=== PATIENT | female | born 1970 | race Caucasian/White ===

== ENCOUNTER 2016-06-01 21:59 | Emergency (ER) | payer OTHER ==
[~2016-06-01] VITALS: Ht 170.2 cm; Wt 77.1 kg
[~2016-06-01 21:59] MED LIST: DILAUDID2 M1 PO; IBUPROFEN800 M1 PO; PREDNISONE20 M1 PO; TRAMADOL HCL50 M1 PO
--- NOTE | 2016-06-01 22:13 | ED HEAD/FACIAL INJ COMPLAINT ---
History of Present Illness General Chief Complaint: Laceration Procedure Stated Complaint: LAC TO L BROW S/P FALL AROUND 1900 Source: patient, family Exam Limitations: no limitations Vital Signs & Intake/Output Vital Signs & Intake/Output Vital Signs Date Time Temp Pulse Resp B/P Pulse O2 O2 Flow FiO2 Ox Delivery Rate 06/01 2349 98.6 88 18 130/80 98 Room Air 06/01 2245 98 Room Air 06/01 2205 97.8 112 16 128/84 98 Room Air Room Air Allergies Coded Allergies: meperidine (Severe, Pass Out 06/01/16) morphine (Mild, Rash 06/01/16) codeine (UNKNOWN 06/01/16) Uncoded Allergies: POLLEN (10/16/11) Reconcile Medications Hydromorphone HCl (Dilaudid) 2 MG TABLET 1-2 TAB PO Q4P PRN SEVERE PAIN Ibuprofen 800 MG TABLET 1 TAB PO Q6PRN PRN pain Prednisone 20 MG TABLET 1 TAB PO BID arthralgia Triage Note: PT TO TRIAGE WITH LEFT TO LEFT EYE BROW AFTER HAVING A SYNCOPAL EPISODE IN THE KITCHEN. PT STATES SHE FELT OVER HEATED AND THEN FELT LIGHTHEADED. PT CALLED OUT FOR FAMILY WHEN SHE FELT LIKE SHE WAS GOING TO PASS OUT AND THEN FELL. FAMILY DID NOT WITNESS THE FALL BUT STATES SHE WAS UNCONSCIOUS FOR ABOUT 10 SECS. PT DENIES NECK PAIN, LAC IS APPOX 1.5 CM AND BLEEDING IN CONTROLED Triage Nurses Notes Reviewed? yes Onset: Abrupt Severity: moderate Location: left eyebrow Method of Injury: fall Loss of Consciousness: brief (seconds) Associated Symptoms: "I felt dizzy and warm." HPI: 46 yo woman presents with a left eyebrow laceration after a syncopal episode. She notes, "I had just eaten... I bent over the horologist... It was so hot - the hot steam and all - and then I felt hot and dizzy and felt a garcia... I got dizzy and passed out and I guess I hit my head on the corner." She notes a brief loss of consciousness. She notes mild pain at the left side of her forehead and a laceration in her left eyebrow. She notes no other injury. She is otherwise well. Past History Travel History Traveled to [place] past 21 day No Medical History Any Pertinent Medical History? 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 No Review of Systems Review of Systems Constitutional: Reports: no symptoms. EENTM: Reports: no symptoms. Respiratory: Reports: no symptoms. Cardiovascular: Reports: no symptoms. GI: Reports: no symptoms. Genitourinary: Reports: no symptoms. Musculoskeletal: Reports: no symptoms. Skin: Reports: no symptoms. Neurological/Psychological: Reports: no symptoms. Hematologic/Endocrine: Reports: no symptoms. Immunologic/Allergic: Reports: no symptoms. All Other Systems: Reviewed and Negative Physical Exam Physical Exam General Appearance: well developed/nourished, mild distress Head: 3CM LACERATION IN RIGHT ANGLE AT LEFT median EYEBROW... left lateral eyebrow with focal tenderness. Eyes: Bilateral: PERRL, EOMI. Ears, Nose, Throat: normal pharynx, normal ENT inspection, hearing grossly normal Neck: normal inspection, supple Respiratory: normal breath sounds Cardiovascular: regular rate/rhythm Gastrointestinal: soft, non-tender Back: normal inspection Extremities: normal inspection, normal range of motion, no edema Psychiatric: awake, alert, oriented x 3 Cranial Nerves: normal hearing, normal speech, PERRL Coordination/Gait: normal finger to nose, normal gait Motor/Sensory: no motor/sensory deficits Reflexes: 1+: bicep (R), bicep (L). Skin: intact, normal color, warm/dry Lymphatic: no anterior cervical zachariah Progress Differential Diagnosis: globe injury, ICH, orbit fracture Plan of Care: Orders Procedure Date/time Status TROPONIN LEVEL 06/01 2221 Complete COMPREHENSIVE METABOLIC PANEL 06/01 2221 Complete CBC WITHOUT DIFFERENTIAL 06/01 2221 Complete Laboratory Tests 06/01/16 2230: Anion Gap 15, Estimated GFR > 60, BUN/Creatinine Ratio 16.7, Glucose 97, Calcium 9.7, Total Bilirubin 0.3, AST 21, ALT 38, Alkaline Phosphatase 56, Troponin I < 0.01, Total Protein 6.8, Albumin 4.2, Globulin 2.6, Albumin/Globulin Ratio 1.6, CBC w Diff MAN DIFF ORDERED, RBC 4.69, MCV 89.4, MCH 30.2, RDW 12.7, MPV 8.2, Segmented Neutrophils 75, Lymphocytes 14 L, Monocytes 6, Eosinophils 5, Platelet Estimate VERIFIED BY SMEAR, Normocytic RBCs VERIFIED, Normochromic RBCs VERIFIED, PUBS MCHC 33.8, Fld Total RBCs Counted 100 Diagnostic Imaging: Viewed by Me: CT Scan. Discussed w/RAD: CT Scan. Radiology Impression: HEAD/MAXILLO-FACIAL... NO FX. NO ACUTE DISEASE... FULL REPORT BELOW Initial ED EKG: normal axis, normal intervals, normal p-waves, normal QRS complex, normal sinus rhythm Comments: PATIENT: MEGAN VILLANUEVA PRESENT AGE: 46 PATIENT ACCOUNT NO: [id number] : 70 LOCATION: [facility] ORDERING PHYSICIAN: EDMOND BROWN MD SERVICE DATE: 06/01/16 EXAM TYPE: CAT - CT HEAD WO IV CONTRAST; CT MAXILLOFACIAL W/O CON EXAMINATION: NONCONTRAST HEAD CT NONCONTRAST MAXILLOFACIAL CT INDICATION INFORMATION: Head injury with loss of consciousness. COMPARISON: None TECHNIQUE: Separate noncontrast CT examinations of the head and maxillofacial bones were performed. Coronal and sagittal images were created for each examination at the technologist workstation. FINDINGS: Head: No evidence of acute intracranial hemorrhage. No extra-axial fluid collections are seen. Leon-white differentiation is maintained without evidence of acute territorial infarction. Ventricles are of normal size without evidence of hydrocephalus. No mass effect or midline shift. The mastoid air cells are well aerated. No acute calvarial fractures are seen. Maxillofacial: There is left periorbital soft tissue swelling. No acute maxillofacial fractures are seen. The pterygoid plates are intact. The lamina papyracea are intact. Zygomatic arches are intact. The orbital rims are intact. Minimal mucoperiosteal thickening of the maxillary sinuses. The frontal, maxillary, ethmoid, and sphenoid sinuses are otherwise well aerated. The uncinate process is normal bilaterally. The infundibula and middle meati are patent. The nasal septum is midline. The mandibular heads are well-seated in the condylar fossa. The orbits demonstrate a normal appearance bilaterally. The globes are intact, and there are no suspicious findings to suggest retrobulbar hemorrhage. IMPRESSION: 1. No acute intracranial findings. 2. Left periorbital soft tissue swelling. No underlying fracture. DICTATED BY: ALEXANDRA COMER MD DATE/TIME DICTATED:06/01/162329 DIGITAL CARTOGRAPHER:SIGIFREDO DATE/TIME TRANSCRIBED:06/01/162329 CONFIDENTIAL, DO NOT COPY WITHOUT APPROPRIATE AUTHORIZATION. <Electronically signed in Other Vendor System> SIGNED BY: SOULEYMANE CASSIDY,ALEXANDRA 06/01 Departure Departure Disposition: HOME OR SELF CARE Condition: Stable Clinical Impression Primary Impression: Head injury Secondary Impressions: Forehead laceration, Vasovagal syncope Referrals: JERRICA MITTAL APRN (PCP/Family) Departure Forms: Customer Survey General Discharge Information Comments 06/01/16, 23:50... pt feels well, able to ambulate, with benign labs/ekg/ct scan. Procedures Laceration/Wound Repair Laceration/Wound Repair: Wound Location: face Wound's Depth, Shape: linear Wound Length (cm): 3 Wound Explored: clean, no foreign body removed Irrigated w/ Saline (ccs): 100 Betadine Prep? Yes Anesthesia: 1% lidocaine Volume Anesthetic (ccs): 7 Suture Size/Type: 4:0, nylon Progress: #4 sutures... excellent result.
[2016-06-01 22:40] LABS: MEAN CORPUSCULAR HGB 30.2 PG (27.0-31.0); MEAN CORPUSCULAR HGB CONC 33.8 G/DL (33.0-37.0); MEAN CORPUSCULAR VOLUME 89.4 FL (81.0-99.0); MEAN PLATELET VOLUME 8.2 FL (7.4-10.4); PLATELET COUNT 193 /CUMM (130-400); RBC DISTRIBUTION WIDTH 12.7 % (11.5-14.5); RED BLOOD CELL CT 4.69 /CUMM (4.20-5.40)
--- NOTE | 2016-06-01 23:38 | CT SCAN REPORT ---
EXAMINATION: NONCONTRAST HEAD CT NONCONTRAST MAXILLOFACIAL CT INDICATION INFORMATION: Head injury with loss of consciousness. COMPARISON: None TECHNIQUE: Separate noncontrast CT examinations of the head and maxillofacial bones were performed. Coronal and sagittal images were created for each examination at the technologist workstation. FINDINGS: Head: No evidence of acute intracranial hemorrhage. No extra-axial fluid collections are seen. Leon-white differentiation is maintained without evidence of acute territorial infarction. Ventricles are of normal size without evidence of hydrocephalus. No mass effect or midline shift. The mastoid air cells are well aerated. No acute calvarial fractures are seen. Maxillofacial: There is left periorbital soft tissue swelling. No acute maxillofacial fractures are seen. The pterygoid plates are intact. The lamina papyracea are intact. Zygomatic arches are intact. The orbital rims are intact. Minimal mucoperiosteal thickening of the maxillary sinuses. The frontal, maxillary, ethmoid, and sphenoid sinuses are otherwise well aerated. The uncinate process is normal bilaterally. The infundibula and middle meati are patent. The nasal septum is midline. The mandibular heads are well-seated in the condylar fossa. The orbits demonstrate a normal appearance bilaterally. The globes are intact, and there are no suspicious findings to suggest retrobulbar hemorrhage. IMPRESSION: 1. No acute intracranial findings. 2. Left periorbital soft tissue swelling. No underlying fracture.
[2016-06-01 23:49] VITALS: BP 130/80
== END 2016-06-01 23:49 ==
LOC: ERH 21:59
PROVIDERS: Pediatrics
DX: R55 Syncope and collapse (principal); S01.81XA Laceration without foreign body of other part of head, initial encounter; S09.90XA Unspecified injury of head, initial encounter; W19.XXXA Unspecified fall, initial encounter

== ENCOUNTER 2016-09-19 15:22 | Emergency (ER) | payer OTHER ==
[~2016-09-19] VITALS: Ht 170.2 cm; Wt 81.6 kg
--- NOTE | 2016-09-19 16:23 | ED THROAT/DENTAL COMPLAINT ---
History of Present Illness General Chief Complaint: General Adult Stated Complaint: PT IS HAVING THROAT PROBLEMS Source: patient Exam Limitations: no limitations Vital Signs & Intake/Output Vital Signs & Intake/Output Vital Signs Date Time Temp Pulse Resp B/P B/P Pulse O2 O2 Flow FiO2 Mean Ox Delivery Rate 09/20 2027 97.5 74 18 134/78 97 Room Air Room Air 09/19 1924 97.2 72 18 130/82 100 Room Air 09/19 1731 97.6 89 19 138/88 99 Room Air 09/19 1533 97.9 99 22 142/100 98 Allergies Coded Allergies: meperidine (Severe, Pass Out, VOMIT 09/19/16) morphine (Mild, PASS OUT 09/19/16) codeine (PROJECTILE VOMITING CONSISTENT 09/19/16) Uncoded Allergies: POLLEN (10/16/11) Reconcile Medications Aspirin/Acetaminophen/Caffeine (Excedrin Extra Strength Caplet) 250 MG-250 MG-65 MG TABLET 2 TAB PO PRN HEADACHE (Reported) Bupropion HCl (Bupropion XL) 300 MG TAB.ER.24H 1 TAB PO DAILY SMOKING CESSATION (Reported) Cetirizine HCl (Zyrtec) 10 MG TABLET 1 TAB PO DAILY ALLERGIES (Reported) Tramadol HCl (Ultram) 50 MG TABLET 1-2 TAB PO Q6P PRN PAIN Triage Note: PER PT BEEN BEING TREATED ALL WINTER FOR SINUS PROBLEMS, SORE THROAT, PT REPORTS FINISHED ANTIBIOTICS 1 MONTH AGO, BUT PAIN AND SORE THORAT CONTINUES, MOUTH DRY CONSTANT DRAINAGE FROM MUCOUS. PT HAS BEEN ON STEROIDS. PT ALSO FEELS RASPY. Triage Nurses Notes Reviewed? yes HPI: Patient presents for evaluation of a severe sore throat that has been present for months but it got considerably worse since Friday. Patient states he is having severe pain and difficulty swallowing. There is been no associated fever the patient states that she has been treated repeatedly with antibiotics and steroids for her throat and sinus problems. She denies any associated fever. Continue nose and throat appointment pending via her primary care doctor. (MARIA G CASSIDY,EUFEMIA Melvin) Past History Travel History Traveled to [place] past 21 day No Medical History Any Pertinent Medical History? 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 No (MARIA G CASSIDY,EUFEMIA Melvin) Review of Systems Review of Systems Constitutional: Reports: no symptoms. EENTM: Reports: see HPI. Respiratory: Reports: no symptoms. Cardiovascular: Reports: no symptoms. GI: Reports: no symptoms. Genitourinary: Reports: no symptoms. Musculoskeletal: Reports: no symptoms. Skin: Reports: no symptoms. Neurological/Psychological: Reports: no symptoms. Hematologic/Endocrine: Reports: no symptoms. Immunologic/Allergic: Reports: no symptoms. All Other Systems: Reviewed and Negative (MARIA G CASSIDY,EUFEMIA Melvin) Physical Exam Physical Exam Mouth/Throat: SEE BELOW Comments: Gen.: Well-nourished, well-developed, no acute respiratory distress. Hoarse voice. Head: Normocephalic, atraumatic. Eyes: Normal inspection bilaterally Ears: Normal inspection bilaterally Nose: Normal inspection Throat/mouth : Moist mucosa, pharyngeal erythema or soft tissue swelling, no exudates Neck: Supple, full range of motion, no goiter, mild anterior cervical lymphadenopathy, no stridor Heart: Regular rate and rhythm, no murmurs rubs or gallops Lungs: Clear to auscultation bilaterally with normal air entry Chest: Nontender Back: Normal range of motion Abdomen: Soft, nontender, nondistended, normal bowel sounds Extremities: Normal range of motion grossly, equal radial pulses, no cyanosis clubbing or edema Neurologic: Cranial nerves grossly intact, speech is clear Skin: warm and dry Psychiatric: Calm, cooperative, no apparent delusions or hallucinations Core Measures ACS in differential dx? No Severe Sepsis Present: No Septic Shock Present: No (MARIA G CASSIDY,EUFEMIA Melvin) Progress Differential Diagnosis: epiglottitis, Ludwigs angina, odontogenic abscess, awais- tonsillar abscess, strep pharyngitis, mono Plan of Care: Orders Procedure Date/time Status Add-on Test (ER Only) 09/19 1956 Active HUMAN BETA HCG SCREEN 09/19 170 Complete CBC WITHOUT DIFFERENTIAL 09/20 1703 Complete THROAT CULTURE W/QUICK STREP 09/19 1655 Active COMPREHENSIVE METABOLIC PANEL 09/19 1630 Complete MONOSPOT 09/19 1622 Complete Laboratory Tests 09/19/16 1704: Anion Gap 10, Estimated GFR > 60, BUN/Creatinine Ratio 20.0, Glucose 92, Calcium 9.5, Total Bilirubin 0.4, AST 19, ALT 38, Alkaline Phosphatase 61, Total Protein 6.7, Albumin 4.1, Globulin 2.6, Albumin/Globulin Ratio 1.6, Total Beta HCG NEGATIVE, CBC w Diff MAN DIFF ORDERED, RBC 4.70, MCV 90.8, MCH 30.4, RDW 13.1, MPV 9.2, Gran % 79.6 H, Lymphocytes % 14.6 L, Monocytes % 4.0, Eosinophils % 1.5, Basophils % 0.3, Absolute Granulocytes 14.4 H, Absolute Lymphocytes 2.6, Absolute Monocytes 0.7 H, Absolute Eosinophils 0.3, Absolute Basophils 0.1, Platelet Estimate ADEQUATE, Normocytic RBCs VERIFIED, Normochromic RBCs VERIFIED , PUBS MCHC 33.4, Infectious Sweet Grass Titer NEGATIVE 09/19/16 1628: Total Beta HCG Cancelled Comments: 09/19/2016 6:20:48 PM I have updated Grace on test results to this point. 19:53 PT UPDATED. PLAN PAIN CONTROL AND F/U WITH ENT SCHEDULED. (MARIA G CASSIDY,EUFEMIA Melvin) Departure Departure Disposition: HOME OR SELF CARE Condition: Stable Clinical Impression Primary Impression: Sore throat Referrals: JERRICA MITTAL APRN (PCP/Family) Additional Instructions: CONSIDER SWITCHING TO ALEGRA. IBUPROFEN 600MG EVERY 6 HOURS NEEDED FOR PAIN. ADD TRAMADOL IF NEEDED FOR PAIN. NOTIFY YOUR PRIMARY CARE DOCTOR OF THIS ED VISIT AND TREATMENT PLAN. YOUR DOCTOR SHOULD REVIEW THE TESTS DONE IN THE ED AND FOLLOW ANY UNRELATED FINDINGS IF NEEDED. RETURN IF ANY CONCERNS OR SUDDEN WORSENING. Departure Forms: Customer Survey General Discharge Information RELEASE- WORK Prescriptions: Current Visit Scripts Tramadol HCl (Ultram) 1-2 TAB PO Q6P PRN PAIN #20 TAB (MARIA G CASSIDY,EUFEMIA Melvin) PA/TELLER SUPERVISOR Co-Sign Statement Statement: ED Attending supervision documentation- [] I saw and evaluated the patient. I have also reviewed all the pertinent lab results and diagnostic results. I agree with the findings and the plan of care as documented in the PA's/TELLER SUPERVISOR's documentation. x I have reviewed the ED Record and agree with the PA's/TELLER SUPERVISOR's documentation. [] Additions or exceptions (if any) to the PAs/TELLER SUPERVISOR's note and plan are summarized below: [] (LIMA CASSIDY,ALYSON)
[2016-09-19] MEDS ORDERED: BUPROPION XL300 M1 PO (16:54)
[2016-09-19] MEDS ORDERED: EXCEDRIN EXTRA1 EACH PO (16:55)
[2016-09-19] MEDS ORDERED: ZYRTEC10 M3 PO (16:55)
--- NOTE | 2016-09-19 19:27 | CT SCAN REPORT ---
EXAMINATION: CT SOFT TISSUE NECK WITH CONTRAST CLINICAL INFORMATION: Severe sore throat and hoarse voice. Assess for epiglottitis, retropharyngeal abscess. COMPARISON: None. TECHNIQUE: Following the intravenous administration of 95 mL of Optiray 320, helical imaging was performed in the axial plane with generation of coronal and sagittal reformatted images. DLP: 553.45 mGy-cm FINDINGS: There is no cervical lymphadenopathy. The epiglottis is not thickened. There are no masses or fluid collections in the floor of mouth or at the base of tongue. There is no cervical lymphadenopathy. There are small multilevel lymph nodes in the neck bilaterally. The parotid glands are homogeneous in attenuation. The submandibular glands are normal. No contour abnormality or pathologic enhancement is seen within the oral cavity or pharyngeal mucosal space. The laryngeal structures are normal. The parapharyngeal fat is preserved. The carotid sheath vasculature opacify normally. No extramucosal soft tissue mass or fluid collection is seen. No retropharyngeal fluid collection is seen. The thyroid gland is mildly prominent but has relatively homogenous density. The superior mediastinum is unremarkable. There are subpleural blebs at the right greater than left lung apices. The mastoid air cells are well aerated. There is mild mucoperiosteal thickening in the inferior left maxillary sinus. The temporomandibular joints are normal. No periapical disease is identified. There are sequelae of an ACDF at the levels of C5-C7. The imaged portions of the brain parenchyma are unremarkable. IMPRESSION: 1. There is no cervical lymphadenopathy. 2. The epiglottis is not thickened and there are no masses or fluid collections in the floor of mouth or at the base of the tongue. 3. There are sequelae of an ACDF between C5 and C7.
[2016-09-19] MEDS ORDERED: ULTRAM50 M1 PO (19:56)
[2016-09-19 20:06] LABS: ABSOLUTE BASOPHIL COUNT 0.1 /CUMM (0.0-0.2); ABSOLUTE EOSINOPHIL COUNT 0.3 /CUMM (0.0-0.7); ABSOLUTE GRANULOCYTE CT 14.4 /CUMM (1.4-6.5); ABSOLUTE LYMPH COUNT 2.6 /CUMM (1.2-3.4); ABSOLUTE MONOCYTE COUNT 0.7 /CUMM (0.10-0.60); BASOPHIL % 0.3 % (0.0-2.0); EOSINOPHIL % 1.5 % (0-5); GRANULOCYTE % 79.6 % (42.2-75.2); HEMATOCRIT 42.7 % (37-47); MEAN CORPUSCULAR HGB 30.4 PG (27.0-31.0); MEAN CORPUSCULAR HGB CONC 33.4 G/DL (33.0-37.0); MEAN CORPUSCULAR VOLUME 90.8 FL (81.0-99.0); MEAN PLATELET VOLUME 9.2 FL (7.4-10.4); PLATELET COUNT 219 /CUMM (130-400); RBC DISTRIBUTION WIDTH 13.1 % (11.5-14.5)
[2016-09-19 20:28] VITALS: BP 134/78
== END 2016-09-19 20:30 ==
LOC: ERH 15:22
PROVIDERS: Emergency Medicine
DX: J02.9 Acute pharyngitis, unspecified (principal); Z72.0 Tobacco use

== ENCOUNTER 2017-07-16 17:19 | Emergency (ER) | payer OTHER ==
[~2017-07-16 17:19] MED LIST changes: +BUPROPION XL300 M1 PO; +DULOXETINE HCL30 MG PO; +EXCEDRIN EXTRA1 EACH PO; +OXYBUTYNIN CHLO10 M1 PO; +OXYCODONE HCL5 M1 PO; +PERCOCET 5-3251 EACH PO; +ULTRAM50 M1 PO; +ZYRTEC10 M3 PO
[2017-07-16 18:12] LABS: ABSOLUTE BASOPHIL COUNT 0.4 /CUMM (0.0-0.2); ABSOLUTE EOSINOPHIL COUNT 0.3 /CUMM (0.0-0.7); ABSOLUTE GRANULOCYTE CT 5.4 /CUMM (1.4-6.5); ABSOLUTE LYMPH COUNT 2.9 /CUMM (1.2-3.4); ABSOLUTE MONOCYTE COUNT 0.5 /CUMM (0.10-0.60); BASOPHIL % 4.1 % (0.0-2.0); EOSINOPHIL % 3.3 % (0-5); GRANULOCYTE % 56.6 % (42.2-75.2); HEMATOCRIT 41.4 % (37-47); MEAN CORPUSCULAR HGB 29.5 PG (27.0-31.0); MEAN CORPUSCULAR VOLUME 89.4 FL (81.0-99.0); MEAN PLATELET VOLUME 8.1 FL (7.4-10.4); PLATELET COUNT 256 /CUMM (130-400); RBC DISTRIBUTION WIDTH 12.7 % (11.5-14.5); RED BLOOD CELL CT 4.63 /CUMM (4.20-5.40); WHITE BLOOD CELL COUNT 9.6 /CUMM (4.8-10.8)
[2017-07-16 18:37] LABS: PT 9.4 SEC (9.4-12.5); PTT 30 SEC (25-37)
--- NOTE | 2017-07-16 20:22 | CT SCAN REPORT ---
EXAMINATION: CT ANGIOGRAM ABDOMEN AND PELVIS CLINICAL INFORMATION: Diffuse abdominal pain and rectal bleeding. COMPARISON: None TECHNIQUE: Multiple axial images were obtained through the abdomen and pelvis following the administration of 100 mL of Optiray 320 intravenous contrast. Images were reviewed on a dedicated 3-D workstation. DLP: 927.75 mGy-cm FINDINGS: Both lung bases are clear. The heart size is normal. Visualized liver, spleen, pancreas and right adrenal gland appears unremarkable. There is a left adrenal and 0.7 x 1.8 cm lesion measuring 35 Hounsfield units on postcontrast exam and 4 Hounsfield units on precontrast exam. The gallbladder has been surgically removed. The abdominal aorta and its bifurcation are normal caliber. No retroperitoneal lymph nodes or mass seen. The IVC is normal. Both kidneys are normal size, shape and position. There is no radiopaque calculi, enhancing renal mass, cyst or hydronephrosis. Both ureters are opacified in segments and appear unremarkable. Imaging through the pelvis reveals a midline anteverted uterus to be unremarkable. The urinary bladder is opacified partially from excreted contrast and appears unremarkable. There is no free fluid seen in the cul-de-sac. Posterior L4-L5 fusion with metallic hardware is noted in place. No bony lytic or sclerotic process seen. IMPRESSION: No acute process seen on CT abdomen pelvis exam.
--- NOTE | 2017-07-16 20:25 | ED GI/GU/ABDOMINAL COMPLAINT ---
History of Present Illness General Chief Complaint: General Adult Stated Complaint: RECTAL BLEEDING Source: patient, old records Exam Limitations: no limitations Vital Signs & Intake/Output Vital Signs & Intake/Output Vital Signs Date Time Temp Pulse Resp B/P B/P Pulse O2 O2 Flow FiO2 Mean Ox Delivery Rate 07/16 2105 97.6 78 18 154/78 98 Room Air 07/16 1745 98.2 94 18 133/92 98 Room Air Allergies Coded Allergies: meperidine (Severe, Pass Out, VOMIT 09/19/16) morphine (Mild, PASS OUT 09/19/16) codeine (PROJECTILE VOMITING CONSISTENT 09/19/16) Uncoded Allergies: POLLEN (10/16/11) Reconcile Medications Cetirizine HCl (Zyrtec) 10 MG TABLET 1 TAB PO DAILY ALLERGIES (Reported) Duloxetine HCl (Unknown Strength) CAPSULE.DR (Unknown Dose) PO DAILY DEPRESSION (Reported) Hydromorphone HCl (Dilaudid) 2 MG TABLET 1 TAB PO BIDP PRN PAIN Ibuprofen 800 MG TABLET 1 TAB PO TID PAIN Oxybutynin Chloride (Oxybutynin Chloride ER) 10 MG TAB.ER.24 1 TAB PO DAILY BLADDER (Reported) Oxycodone HCl 5 MG TABLET 1 TAB PO BIDP PRN BREAKTHROUGH PAIN Triage Note: 47 YO FEMALE TO TRAIGE C/O RECTAL BLEEDING SINCE FRIDAY. STATES BRB ON TOILET PAPER AND IN TOILET. C/O PIAN TO LOWER ABD AND WEAKNESS. Triage Nurses Notes Reviewed? yes ? N Is pt currently ? No Onset: Abrupt Duration: day(s): (3), constant, waxing and waning Timing: recent history Quality/Severity: aching Severity Numbers: 4 Location: left lower quadrant, left upper quadrant Radiation: no radiation Activities at Onset: none No Modifying Factors: none Associated Symptoms: DENIES HPI: 47-year-old female presents to the ER for evaluation with 3 day history of rectal bleeding. She also reports left-sided abdominal pain. No nausea vomiting recent constipation. Patient has a history of external hemorrhoids many years ago denies rectal pain. 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 Damon who she is scheduled to see him Friday. No shortness of breath dizziness lightheadedness chest pain. Her last colonoscopy was 5 years ago at which time she states she had polyps removed. No recent weight loss. No urinary complaints she states yesterday she was going through 3-4 pads however today she did not need to use any. (George Arrieta) Past History Travel History Traveled to [place] past 21 day No Medical History Any Pertinent Medical History? see below for history Neurological: HX OF MIGRAINE EENT: sinusitis Cardiovascular: MURMUR Respiratory: bronchitis Gastrointestinal: NONE Hepatic: NONE Renal: NONE Musculoskeletal: chronic back pain Psychiatric: NONE Endocrine: NONE Blood Disorders: NONE Cancer(s): NONE URGENT CARE/Reproductive: NONE Surgical History Surgical History: cholecystectomy, , LEFT WRIST SURGERY, UTERINE ABLATION MULTIPLE TMJ SURGERIES Psychosocial History What is your primary language Telugu Tobacco Use: Current Daily Use Daily Tobacco Use Amount/Type: => 5 Cigarettes daily Family History Hx Contributory? No (George Arrieta) Review of Systems Review of Systems Constitutional: Reports: see HPI. Comments Review of systems: See HPI, All other systems negative. Constitutional, no chills no fever, HEENT: no sore throat no congestion Cardiovascular: No chest pain Skin: no rashes, no change in skin Respiratory: No dyspnea no cough no sputum GI: No nausea no vomiting, no diarrhea, : No dysuria No hematuria, no frequency Muscle skeletal: No joint pain, no back pain, no neck pain, Neurologic: , no headache Heme/endocrine: No bruising (George Arrieta) Physical Exam Physical Exam General Appearance: well developed/nourished, alert, awake Gastrointestinal: normal bowel sounds, soft, non-tender Comments: Well-developed well-nourished patient in no apparent distress. HEENT: Atraumatic, extraocular motion intact Neck: Supple, FROM Back: FROM Cardiovascular: Regular rate and rhythms no murmurs rubs or gallops, Respiratory: No respiratory distress. Patient speaking in full complete sentences. Breath sounds clear to auscultation bilaterally: NO W/R/R Abdomen: Soft nontender no rebound or guarding Rectal deferred Extremities: full range of motion Neuro: awake, alert, and oriented to person, place and time. There were no obvious focal neurologic abnormalities. Skin: Warm & dry;No appreciable rash on exposed skin Psych: Mood affect normal, normal memory normal judgment. Core Measures ACS in differential dx? No Sepsis Present: No Sepsis Focused Exam Completed? No (George Arrieta) Progress Differential Diagnosis: appendicitis, biliary colic, bowel obstruction, colon cancer, diverticulitis, gastritis, hepatitis, inflamm bowel dis, kidney stone, peptic ulcer, PUD/GERD, perforated viscous Plan of Care: Orders Procedure Date/time Status Add-on Test (ER Only) 07/16 1832 Active LACTIC ACID 07/16 174 Complete MISTAKE 07/16 173 Active TROPONIN LEVEL 07/16 1736 Complete PARTIAL THROMBOPLASTIN TIME 07/16 1736 Complete PROTHROMBIN TIME 07/16 1736 Complete COMPREHENSIVE METABOLIC PANEL 07/16 1736 Complete CBC WITHOUT DIFFERENTIAL 07/16 1736 Complete TYPE & SCREEN (NOT X-MATCH) 07/16 1736 Complete EKG 07/16 173 Active Laboratory Tests 07/16/172046: Lactic Acid Cancelled 07/16/171747: Anion Gap 13, Estimated GFR > 60, BUN/Creatinine Ratio 16.7, Glucose 91, Lactic Acid 1.5, Calcium 9.6, Total Bilirubin 0.3, AST 22, ALT 32, Alkaline Phosphatase 53, Troponin I < 0.01, Total Protein 6.8, Albumin 4.3, Globulin 2.5, Albumin/ Globulin Ratio 1.7, PT 9.4, INR 0.89 L, APTT 30, CBC w Diff NO MAN DIFF REQ, RBC 4.63, MCV 89.4, MCH 29.5, MCHC 33.0, RDW 12.7, MPV 8.1, Gran % 56.6, Lymphocytes % 30.2, Monocytes % 5.8, Eosinophils % 3.3, Basophils % 4.1 H, Absolute Granulocytes 5.4, Absolute Lymphocytes 2.9, Absolute Monocytes 0.5, Absolute Eosinophils 0.3, Absolute Basophils 0.4 07/16/171746: Lactic Acid Cancelled Labs were ordered from triage CAT scan ordered I discussed with the patient at length all of her results and she feels well enough to go home- H&H is within normal limits she is hemodynamically stable resting in no apparent distress I advise close follow-up with GI who she is scheduled to see on Friday return precautions were discussed at length she feels comfortable plan Diagnostic Imaging: Viewed by Me: CT Scan. Discussed w/RAD: CT Scan. Initial ED EKG: none (Rodger MCNULTY,George) Departure Departure Time of Disposition: 2052 Disposition: HOME OR SELF CARE Condition: Stable Clinical Impression Primary Impression: Rectal bleeding Referrals: Lou CASSIDY,Carmen Meneses APRN (PCP/Family) Additional Instructions: FOLLOW UP WITH YOUR RATE CLERK PASSENGER DR CHERRY ON FRIDAY SCHEDULED.. DILAUDID FOR PAIN. REST, DRINK PLENTY OF FLUIDS. RETURN AT [facility] WITH ANY CONCERNS Departure Forms: Customer Survey General Discharge Information Prescriptions: Current Visit Scripts Hydromorphone HCl (Dilaudid) 1 TAB PO BIDP PRN PAIN #10 TAB (George Arrieta) PA/STEAM TRAIN DRIVER Co-Sign Statement Statement: ED Attending supervision documentation- I saw and evaluated the patient. I have also reviewed all the pertinent lab results and diagnostic results. I agree with the findings and the plan of care as documented in the PA's/STEAM TRAIN DRIVER's documentation. x I have reviewed the ED Record and agree with the PA's/STEAM TRAIN DRIVER's documentation. [] Additions or exceptions (if any) to the PAs/STEAM TRAIN DRIVER's note and plan are summarized below: [] (Layla CASSIDY,Elias)
[2017-07-16] MEDS ORDERED: DILAUDID2 M1 PO (20:55)
[2017-07-16 21:05] VITALS: BP 154/78
== END 2017-07-16 21:07 ==
LOC: ERH 17:19
PROVIDERS: Physician Assistant Medical
DX: K62.5 Hemorrhage of anus and rectum (principal)
CPT/HCPCS: 74174; 93005; 93010

== ENCOUNTER 2017-09-22 09:01 | Emergency (ER) | payer OTHER ==
[2017-09-22] MEDS ORDERED: BUPROPION XL300 M1 PO (10:52)
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
[2017-09-22] MEDS ORDERED: PERCOCET 5-3251 EACH PO (11:36)
[2017-09-22 11:42] VITALS: BP 138/87
== END 2017-09-22 11:43 ==
LOC: ERH 09:01
DX: T23.201A Burn of second degree of right hand, unspecified site, initial encounter (principal); X12.XXXA Contact with other hot fluids, initial encounter; Y93.9 Activity, unspecified; Y92.9 Unspecified place or not applicable

== ENCOUNTER 2018-01-05 12:26 | Emergency (ER) | payer OTHER ==
[~2018-01-05] VITALS: Ht 170.2 cm; Wt 79.4 kg
--- NOTE | 2018-01-05 15:14 | CT SCAN REPORT ---
EXAMINATION: CT HEAD WITHOUT CONTRAST CT CERVICAL SPINE WITHOUT CONTRAST CLINICAL INFORMATION: Status post fall. Assess for bleed or fracture. COMPARISON: CT scan of the cervical spine 04/07/[address] scan of the head 06/01/2016. TECHNIQUE: Multidetector CT imaging of the head and cervical spine was performed without the use of intravenous contrast. Coronal and sagittal reformatted images were generated at the technologist workstation. DLP: 893.97 mGy-cm. FINDINGS: CT head: There is no evidence of acute intracranial hemorrhage or territorial infarction. No abnormal mass-effect or midline shift is seen. Leon to white matter differentiation is well preserved. No extra-axial fluid collections are identified. The ventricles are normal in size. There is no abnormal attenuation within the brain parenchyma. There are no acute osseous soft tissue abnormalities. The mastoid air cells and visualized portions of the paranasal sinuses are well-aerated. CT cervical spine: The study redemonstrates the sequelae of the ACDF at C5-C6. The anterior plate and the vertebral body screws appear intact without evidence of fracture or loosening. The study redemonstrates the corpectomy graft. It appears to be well integrated into the superior endplate of C7, but there is incomplete osseous union into the inferior endplate of C5, unchanged. There is narrowing of intervertebral disc height at C6-C7. There are no acute fractures or subluxations. There are multilevel facet arthropathic changes. The lateral masses of C1 and C2 are normally aligned and the dens is intact. The atlantooccipital articulations appear normal. The paravertebral structures are unremarkable. There are emphysematous changes with bullae at the bilateral lung apices. IMPRESSION: 1. There are no acute bleeds or territorial infarcts. There are no acute osseous or soft tissue abnormalities. 2. There are no acute fractures or subluxations in the cervical spine. The study redemonstrates the sequelae of the ACDF at C5-C7.
--- NOTE | 2018-01-05 15:20 | RADIOLOGY REPORT ---
EXAMINATION: CR PELVIS. CR RIGHT HIP. CR CHEST X-RAY. CR LEFT WRIST. CLINICAL INFORMATION: Status post fall with hip pain. Rule out fracture. Status post fall at work. Left wrist pain. Hip pain. Pleuritic pleuritic pain. COMPARISON: Chest x-ray dated 11/15/2017. TECHNIQUE: Frontal and lateral views of the chest. Frontal view of the pelvis and coned-down frontal and frog-leg lateral views of the right hip. 4 views of the left wrist. FINDINGS: CHEST X-RAY: The cardiomediastinal silhouette is within normal limits in size. Lungs bilaterally are symmetrically expanded and clear. No focal consolidation, effusion or pneumothorax is seen. Cervical spine fusion plate is partially imaged. Bony structures are otherwise unremarkable. PELVIS AND RIGHT HIP: Lower spinal fusion hardware is partially included. The bony pelvis is intact with no acute fracture or dislocation seen. The right hip is intact with no acute fracture or dislocation seen. Sacroiliac joints, hip joints and pubic symphysis are intact. Degenerative changes seen in the acetabular roofs bilaterally with some cystic changes noted. Enthesopathic changes are seen at the anterior superior iliac spines. LEFT WRIST: Mild soft tissue swelling is seen over the ulnar styloid process. No underlying fracture or dislocation is seen. The carpal rows are well maintained in alignment. Radiocarpal joint and radioulnar joint are intact. No foreign body or significant degenerative change or soft tissue calcifications are seen. IMPRESSION: 1. No evidence of acute injury to the chest, pelvis, right hip and left wrist. 2. Postsurgical changes seen involving the cervical spine fusion and lower lumbar spine fusion.
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
--- NOTE | 2018-01-05 17:30 | RADIOLOGY REPORT ---
EXAMINATION: XR THORACOLUMBAR SPINE CLINICAL INFORMATION: Fall. COMPARISON: CT scan abdomen pelvis 07/16/2017, CT cervical spine 04/07/2017 TECHNIQUE: AP lateral view of thoracic spine. AP lateral view of lumbar spine. FINDINGS: There is no fracture. Vertebrae have normal height and normal alignment. There is orthopedic plate and screw at the lower cervical spine. Transpedicular screws present at L4-L5. Hardware is intact. There is mild degenerative lipping at the anterior vertebral endplates of thoracic and lumbar spine vertebral bodies. Surgical clips right upper quadrant of abdomen. IMPRESSION: 1. No acute abnormality. 2. 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 3. Status post orthopedic fusion of the lower cervical spine at lower lumbar spine.
[2018-01-05 17:31] VITALS: BP 139/96
[2018-01-05] MEDS ORDERED: PERCOCET 5-3251 EACH PO (17:39)
[2018-01-05] MEDS ORDERED: CYCLOBENZAPRINE10 M1 PO (17:40)
== END 2018-01-05 17:45 ==
LOC: ERH 12:26
DX: M25.552 Pain in left hip (principal); M25.532 Pain in left wrist; S70.01XA Contusion of right hip, initial encounter; W18.09XA Striking against other object with subsequent fall, initial encounter; Y93.83 Activity, rough housing and horseplay; Y92.89 Other specified places as the place of occurrence of the external cause
CPT/HCPCS: 71046; 72080; 72170; 73110-LT; 73502-RT; 80307; 81025; 96372; J1885